=== PATIENT | male | born 1940 | race Caucasian/White ===

== ENCOUNTER → 2017-11-03 | Outpatient (CLI) | payer MEDICARE ==
[~2017-11-03] MED LIST: ATOR20TA42 PO; CARD240C6 PO; CHLO4TAB2 PO; HYDR-3580 OR
--- NOTE | 2017-11-03 09:27 | RADRPT ---
EXAM DATE/TIME: 11/03/2017 08:33 [place] COMPARISON: No previous studies available for comparison. INDICATIONS : Evaluate for pneumonia, pneumothorax, or communicable disease. Pre-op right shoulder acromioplasty. MEDICAL HISTORY : Heart attack. SURGICAL HISTORY : Umbilical hernia repair. Hip replacement. ENCOUNTER: Initial ACUITY: 1 day PAIN SCORE: 0/10 LOCATION: Bilateral chest FINDINGS: PA and lateral views of the chest demonstrate the lungs to be symmetrically aerated without evidence of mass, infiltrate or effusion. The cardiomediastinal contours are unremarkable. Osseous structure s are intact. Cholecystectomy clips. CONCLUSION: Normal examination. Albaro Alan MD on November 03, 2017 at 9:24 Board Certified Radiologist. This report was verified electronically.
--- NOTE | 2017-11-04 23:52 | EKG ---
Date Performed: 11/03/2017 Time Performed: 08:12:16 PTAGE: 77 years EKG: Sinus rhythm with bigeminal PACs. Rightward axis Right bundle branch block Abnormal ECG PREVIOUS TRACING : 05/03/2012 06.38 Compared to previous tracing, previously ectopic rhythm DOCTOR: Ge Sow Interpretating Date/Time 11/04/2017 23:50:16
== END ==
LOC: HCAV 07:58
PROVIDERS: ATTEND Pediatrics
DX: Z01.818 Encounter for other preprocedural examination (principal); R94.31 Abnormal electrocardiogram [ECG] [EKG]
CPT/HCPCS: 71046; 93005

== ENCOUNTER 2017-11-25 06:32 | Day surgery (SDC) | payer MEDICARE ==
[~2017-11-25] VITALS: Ht 172.7 cm; Wt 80.1 kg
[2017-11-25] MEDS ORDERED: IOHEXOL 350 MG/ML 50 ML BTL (for Cath Lab) OTHER ONE ×2 (06:33)
[2017-11-25 06:45] VITALS: BP 176/79; PULSE 60; RESP 17; TEMP 98.1; O2SAT 99
[2017-11-25] MEDS ORDERED: CETI10CH CHEW (07:25)
[2017-11-25] MEDS ORDERED: HYDR25TA5 PO (07:25)
[2017-11-25] MEDS ORDERED: ATOR20TA15 PO (07:25)
[2017-11-25] MEDS ORDERED: METO1TAB9 PO (07:25)
[2017-11-25] MEDS ORDERED: ECASA81 PO (07:25)
[2017-11-25 07:32] LABS: BASOPHIL # 0.1 TH/MM3 (0-0.2); BASOPHIL % 0.9 % (0.0-2.0); EOSINOPHIL # 0.5 TH/MM3 (0-0.4); EOSINOPHIL % 8.8 % (0.0-4.0); HEMATOCRIT 41.7 % (39.0-51.0); HEMOGLOBIN 14.4 GM/DL (13.0-17.0); LYMPH % 32.6 % (9.0-44.0); MEAN CELL VOLUME 96.2 FL (80.0-100.0); MEAN CORPUSCULAR HEMOGLOBIN 33.2 PG (27.0-34.0); MEAN CORPUSCULAR HGB CONC 34.5 % (32.0-36.0); MEAN PLATELET VOLUME 8.6 FL (7.0-11.0); MONO % 7.7 % (0.0-8.0); MONOCYTE # 0.5 TH/MM3 (0-0.9); PLATELET COUNT 225 TH/MM3 (150-450); RED BLOOD COUNT 4.33 MIL/MM3 (4.50-5.90); RED CELL DISTRIBUTION WIDTH 13.5 % (11.6-17.2); WHITE BLOOD COUNT 6.1 TH/MM3 (4.0-11.0)
[2017-11-25 07:44] LABS: PROTHROMBIN TIME - PATIENT 10.2 SEC (9.8-11.6)
[2017-11-25 07:51] LABS: CALCIUM 8.9 MG/DL (8.5-10.1); CREATININE 1.27 MG/DL (0.60-1.30)
[2017-11-25] MEDS ORDERED: HEPARIN-NS/PF INJ 500 ML ONE (08:30)
[2017-11-25] MEDS ORDERED: NITROGLYCERIN INJ 5 ML ONE (08:31)
[2017-11-25] MEDS ORDERED: MIDAZOLAM HCL 2 MG/2 ML VIAL ONE (08:31)
[2017-11-25] MEDS ORDERED: HEPARIN SODIUM - IV 10,000 UNITS/10 ML VIAL ONE (08:31)
[2017-11-25] MEDS ORDERED: VERAPAMIL HCL 5 MG/2 ML VIAL ONE (08:31)
--- NOTE | 2017-11-25 09:20 | CATHPROC ---
[facility] HIS Report Study Information Study Number Admission Scheduled Start Study Start [id number] Nov 25 2017 6:32AM 11/25/2017 Nov 25 2017 8:26AM [place] [facility] Cardiac Catheterization Admit Source Facility Department Other [facility] - Senior C Software Engineer Physician and Clinical Staff Initial Ge Davey Hedge Trimmer Macy Horton,RN Recorder Ashly Hdz ,RT(R) Scrub Ector Rocha RCIS(BS) Procedures Performed Procedure Location (Site) Vessel Name Coronary Angiograms LCA Left Coronary Coronary Angiograms RCA Right Coronary L Heart Cath Equipment Time Housing Assistant Description Size Mfg Part Number Used/Scraped TRANSDUCER, TRUWAVE [id number] 08:32 DIAZ MAST * Used W/STOCKCOCK *[id number] [id number] *[id number] [id number] *[id number] 08:32 Startup [employer] PACK, CCL CUSTOM * Used *[id number] 08:32 [employer] SUPPORT, ARTERIAL ADULT [id number] *[id number] Used BAND, RADIAL COMPRESSION TR [id number] 09:06 THREAT [employer]REAM [employer] 24CM Used SHORT 24 *[id number] 08:32 FAD ? IO WIRE, EXCHANGE 260CM 3MMJ 260CM Used *[id number] 08:32 NAMIC MANIFOLD, 4 PORT * Used *[id number] 08:32 NYCOMED OMNIPAQUE, 350 MG, 150ML 150ML [id number] Used [id number] 08:32 [employer]LEY [employer] BLANKET,WARM AIR CCL * Used *[id number] SHEATH, FR6 TRANSRADIAL RM*[id number] 08:32 [employer] MED[employer] FR 6 Used SLENDER 10CM *[id number] Equipment Model, Serial, Lot Number and Expiration Data Description Model Number Serial Number Lot Number Expiration Date BAND, RADIAL COMPRESSION TR [id number] 09-07-2020 SHORT 24 History: Current Medications Medication Dosage/Unit Route Frequency Last Date/Time Taken ASA Statins (any) History: Allergies Allergy Reaction ciprofloxacin HIVES,RASH cefuroxime ITCHING,HIVES lisinopril cephalexin History: Risk Factors Family History of Hypertension Dyslipidemia Previous AR Previous Heart Failure Premature CAD Yes Yes Yes Yes No Prior Valve Prior PCI Prior CABG Surgery No No No Cerebrovascular Peripheral Artery Chronic Lung On Dialysis Diabetes Disease Disease Disease No No Yes No No History: Stress Tests Stress or Imaging Studies Performed Yes Standard Exercise Stress Test No Stress Echo No Stress Test SPECT Yes Stress Test CMR No Cardiac CTA Coronary Calcium Score No No Labs Hgb (g/dl) Hct (%) RBC (MIL/MM3) WBC (l/cumm) Platelets (thousands) 11.60-17.00 35.00-51.00 4.00-5.90 4.00-11.00 150.00-450.00 14.4 41.7 4.3 6.1 225 BUN (mg/dl) Creatinine (mg/dl) BUN:Creatinine (1:x) 7.00-18.00 0.50-1.30 10.00-20.00 17 1.2 14.2 Na (meq/l) K (meq/l) Cl (meq/l) 136.00-145.00 3.50-5.10 98.00-107.00 138 4.4 102 CPK-MB (ng/ML) 0.50-3.60 Not Drawn Medication Medication Total Dose (Bolus/Oral) Medication Total Dosage/Unit 1% XYLOCAINE 10 mL FENTANYL 25 mcg RADIAL COCKTAIL 5 mL (Bolus) VERSED 0.5 mg Medications (Bolus/Oral) Medication Time Given Dosage/Unit Administered By Reason VERSED 11/25/2017 8:54:30 AM 0.5 mg Macy Horton 0.5 mg VERSED given in lab by Macy Horton, RN in Left Antecubital via Peripheral IV. Ordered by Ge Burroughs 1% XYLOCAINE 11/25/2017 8:55:17 AM 10 mL Ge Sow 10 mL 1% XYLOCAINE given in lab by Ge Sow in Right Radial via Subcutaneous. Ordered by Ge Sanchez FENTANYL 11/25/2017 8:55:34 AM 25 mcg Macy Horton 25 mcg FENTANYL given in lab by Macy Horton, RN in Left Antecubital via Peripheral IV. Ordered by Ge Sow Ntg 200mcg Verapamil 2.5mg Heparin RADIAL COCKTAIL 11/25/2017 8:57:10 AM 5 mL (Bolus) Ge Sow 3000U 5 mL (Bolus) RADIAL COCKTAIL given in lab by Ge Sow via Radial. Using [Solution Name]. O rdered by Ge Sow Reason: Ntg 200mcg Verapamil 2.5mg Heparin 3200U. Medication (Drip) Medication Time Given Dosage/Unit Concentration/Unit Diluent (ml) Solution IV Solutions 11/25/2017 8:27:10 AM 50 mL (IV) NaCl .9 Patient arrived on IV Solutions in Left Antecubital via Peripheral IV. Pump/Drip Flow using NaCl .9. Initial Case Assessment Cardiovascular HR Rhythm NIBP 82 sr 199/88 Edema Present Skin color Skin None Normal Warm Dry Circulatory - Right Pulses Dorsalis Pedis Femoral Radial 2 2 2 Scale (0,1,2,3,4,d) Circulatory - Left Pulses Dorsalis Pedis Femoral Radial 2 2 Scale (0,1,2,3,4,d) Circulatory - Lower Extremities Color Lower Right Color Lower Left Normal Normal Neurological State Oriented to time-place- Alert Moves all extremities person Respiration - General Respiration Rate SpO2 (%) (B/min) 8 98 Final Case Assessment Cardiovascular HR Rhythm NIBP 82 sr 199/88 Edema Present Skin color Skin None Normal Warm Dry Circulatory - Right Pulses Dorsalis Pedis Femoral Radial 2 2 2 Scale (0,1,2,3,4,d) Circulatory - Left Pulses Dorsalis Pedis Femoral Radial 2 2 Scale (0,1,2,3,4,d) Circulatory - Lower Extremities Color Lower Right Color Lower Left Normal Normal Neurological State Oriented to time-place- Alert Moves all extremities person Respiration - General Respiration Rate SpO2 (%) (B/min) 8 98 Chronological Log Time Study Chronological Log 8:24:33 Patient arrived via Bed. 8:24:40 Patient Name, D.O.B, / Armband Verified By R.N. 8:26:44 Consent signed by the physician and the patient and verified by the Senior C Software Engineer staff. 8:26:45 Pre-op and post- op instructions given; patient acknowledges understanding of instructions. 8:26:46 Verbal Stimulation=2 Physical Stimulation=2 Airway=2 Respiration=2 TOTAL=8. (0=absent, 1=li mited, 2=present) 8:26:49 Allens test performed on the right radial and ulnar artery. 8:26:59 Patient has been NPO for More than 6Hrs. 8:27:01 Skin Breakdown- none per patient 8:27:07 Patient Warmer Placed on the Table. 8:27:08 Nayana Prominences Protected 8:27:09 A # 20 IV was noted in the Antecubital (left). Grade = 0 8:27:10 Patient arrived on IV Solutions in Left Antecubital via Peripheral IV. Pump/Drip Flow using NaCl .9. 8:27:10 History and physical on the chart or being dictated. Assessment: Initial Case, HR=82 BPM, Rhythm=sr, NNUB=390/88 mmhg, Edema=None, Color=Normal, Skin = Warm, Dry Right Pulses: Geo Ped=2, Femoral=2, Radial=2 Left Pulses: Geo Ped=2, Femoral=2 8:27:15 Lower Right Extremities: Color=Normal Lower Left Extremities: Color=Normal Neurological: State=Alert, Ox3, RODRIGUEZ Respiration: Resp=8 B/min, SpO2=98 % Vitals capture started with the following parameters, Patient=Adult, Interval=5 min, Initial Pre iglis=860 mmHg, 8:28:59 Deflation Rate=5 mmHg, Cuff placed on Left Arm 8:30:15 ZF=174 bpm, GCGS=106/88 mmhg, SpO2=98.0 %, Resp=4 B/min, Pain=0, Osmani=10, Tirado=2 8:32:34 Reference ECG taken 8:34:44 HR=65 bpm, UCGK=177/99 mmhg, SpO2=99.0 %, Resp=10 B/min, Pain=0, Osmani=10, Tirado=2 8:38:23 Right Radial and groin(s) prepped with 2% chlorhexidine, and draped after a 3 min. waiting t johnathon. 8:39:43 HR=65 bpm, LLKP=915/100 mmhg, SpO2=99.0 %, Resp=12 B/min, Pain=0, Osmani=10, Tirado=2 8:42:11 MD paged 8:42:13 MD responded 8:44:25 MD arrived. 8:44:46 HR=66 bpm, VMVT=021/90 mmhg, SpO2=98.0 %, Resp=11 B/min, Pain=0, Osmani=10, Tirado=2 8:46:08 Pressure channel 1 zeroed. 8:49:39 HR=64 bpm, BWOM=134/94 mmhg, SpO2=97.0 %, Resp=12 B/min, Pain=0, Osmani=10, Tirado=2 Time Out. Correct patient, correct procedure, correct physician, labs, allergies, and equipment verified with photographic laboratory supervisor 8:53:28 team present. Fire risk assesment completed (see hard stop sheet for coding). Time Out Concu rred by MD and individual staff in procedure. 0.5 mg VERSED given in lab by Macy Horton, RN in Left Antecubital via Peripheral IV. Ordered by Ge Sow 8:54:30 G. 8:55:16 Case Start 10 mL 1% XYLOCAINE given in lab by Ge Sow in Right Radial via Subcutaneous. Ordered by Juanjose 8:55:17 Ge De Oliveira 8:55:29 HR=66 bpm, AHNB=483/99 mmhg, SpO2=97.0 %, Resp=16 B/min, Pain=0, Osmani=10, Tirado=2 25 mcg FENTANYL given in lab by Macy Horton, TRIXIE in Left Antecubital via Peripheral IV. Ordere d by Juanjose 8:55:34 Ge De Oliveira 8:56:11 Access site was Right Radial Artery. A SHEATH, FR6 TRANSRADIAL SLENDER 10CM FR 6 was advanced into the Radial (right) using the Keisha bowles 8:56:44 technique. 5 mL (Bolus) RADIAL COCKTAIL given in lab by Ge Sow via Radial. Using [Solution Nam e]. Ordered by 8:57:10 Ge Sow. Reason: Ntg 200mcg Verapamil 2.5mg Heparin 3200U. A JR 4.0 INFINITI CATHETER FR 5 was advanced over a wire. OMNIPAQUE, 350 MG, 150ML 150ML was use d for 8:57:44 injections. Recorded Pressure: LV, HR=82, Condition=Condition 1 8:58:42 (Left Ventricle) LV 152/1/16 Recorded Pressure: LV, Ao, HR=83, Condition=Condition 1 8:58:58 (Left Ventricle) LV 146/6/41, (Aorta) Ao 155/78/115 8:59:45 HR=76 bpm, QSDY=146/85 mmhg, SpO2=92.0 %, Resp=7 B/min, Pain=0, Osmani=10, Tirado=2 9:00:31 The RCA was injected and visualized at various angles. OMNIPAQUE, 350 MG, 150ML 150ML used. After removing the current catheter a JL 3.5 INFINITI CATHETER FR 5 was advanced over a WIRE, EX CHANGE 260CM 9:02:26 3MMJ 260CM. 9:03:37 The LCA was injected and visualized at various angles. OMNIPAQUE, 350 MG, 150ML 150ML used. 9:04:38 HR=77 bpm, BMPN=637/74 mmhg, SpO2=91.0 %, Resp=10 B/min, Pain=0, Osmani=10, Tirado=2 9:06:01 Catheter was removed 9:06:26 Case End Assessment: Final Case, HR=82 BPM, Rhythm=sr, DWNG=738/88 mmhg, Edema=None, Color=Normal, Skin = Warm, Dry Right Pulses: Geo Ped=2, Femoral=2, Radial=2 Left Pulses: Geo Ped=2, Femoral=2 9:06:53 Lower Right Extremities: Color=Normal Lower Left Extremities: Color=Normal Neurological: State=Alert, Ox3, RODRIGUEZ Respiration: Resp=8 B/min, SpO2=98 % 9:06:59 Catheter(s) removed without difficulty Radial Compression Device Used. 12 mLs of air placed in BAND, RADIAL COMPRESSION TR SHORT 24 2 4CM. Affected 9:07:01 hand ~O2 SATURATION~ % O2 saturation. 9:07:10 Sterile dressing applied to site 9:07:11 No case complications noted. 9:07:13 Cine recording checked. 9:07:14 Bedside Report will be given. 9:07:20 A Left Heart Cath was performed. 9:09:41 HR=60 bpm, SWJK=419/81 mmhg, SpO2=94.0 %, Resp=10 B/min, Pain=0, Osmani=10, Tirado=2 9:16:32 Patient moved to stretcher End Study - Contrast Media Used In Study Contrast Total Opened (mL) Total Used (mL) Total Wasted (mL) Omnipaque 40 40 0 End Study - Maximum Contrast Load Max Contrast Load (mL) 333.3 End Study - Radiation Exposure Fluoro Time (minutes) 2.7 End Study - Sheaths Sheaths Pulled By Sheath Hold Time (min) Ector Rocha End Study - Patient Disposition Complications Transferred To Interventional Outcome No Telemetry Bed No attempt made
[2017-11-25] MEDS ORDERED: hydrALAZINE HCL 20 MG/ML VIAL ONE (09:29)
[2017-11-25] MEDS ORDERED: MISC INFORMATION XX ONE (09:30)
--- NOTE | 2017-11-25 10:01 | MA ---
cc: Ge Sow DO DATE: 11/25/2017 DATE OF PROCEDURE: 11/25/2017 PROCEDURE PERFORMED: Left heart catheterization, coronary angiogram, moderate sedation 10 minutes. PREPROCEDURE DIAGNOSIS: Preoperative cardiovascular evaluation, abnormal stress test. POSTPROCEDURE DIAGNOSIS: Mild coronary artery disease. MEDICATIONS: Versed 0.5 mg, fentanyl 25 mcg, heparin 3200 units, verapamil 2.5 mg and nitro 200 mcg. CONTRAST USED: 40 mL. FLUOROSCOPY: 2.7 minutes. MODERATE SEDATION: 10 minutes. FRAILTY SCORE: 4. ESTIMATED BLOOD LOSS: 10 mL. PROCEDURAL SUMMARY: Moisés Cifuentes is a pleasant 77-year-old male who sees my partner, Dr. Page in the office and underwent stress testing in anticipation of shoulder surgery. He was found to have mild abnormality in the anterolateral portion and recommended cardiac catheterization. Risks, benefits and alternatives were explained to him and he consented to such. He was brought to the lab and prepped in the usual sterile fashion. The right radial artery was accessed using a modified Seldinger technique and placement of a 5/6 Mongolian slender sheath. This was easily aspirated and flushed. A JR4 was advanced over a J-wire to the ascending aorta and across the aortic valve for measurement of left ventricular pressure. This was pulled back across the aortic valve showing no significant gradient of aortic stenosis. JR4 was used for selective angiography of the right coronary artery system. This was exchanged out for a JL3.5 which was used for selective angiography of the left coronary artery system. JL3.5 was removed over a J-wire. A radial band was placed over the arteriotomy site for hemostasis. The patient left the medical laboratory technical officer cardiovascularly stable. FINDINGS: LEFT MAIN: Normal-sized vessel with adequate reflux and no significant disease. It bifurcates into an LAD and circumflex. LAD: Normal-sized vessel in the proximal portion with just distal to this 10-20% disease. Distally it has no significant disease. It gives off 1 major diagonal, which has a 30% lesion in the ostial portion and distal to this 10-20% disease. LEFT CIRCUMFLEX: Normal-sized vessel with mild luminal irregularities throughout the proximal and mid portion. It gives off 2 obtuse marginals with the first one being large and no significant disease and the second one being overall small. RCA: Normal-sized vessel with no disease noted. It gives off a PDA as well as a posterolateral branch. LVEDP: 12. IMPRESSION: 1. Abnormal stress test. 2. Mild coronary artery disease by cardiac catheterization. 3. Preoperative cardiovascular exam. RECOMMENDATIONS: 1. Mr. Cifuentes appears to have mild coronary artery disease and he will continue on medical management. 2. He will followup with Dr. Page for further recommendations for his preoperative risk assessment. Thank you for allowing me to see Moisés Cifuentes. If there are any questions, please do not hesitate to call. Ge Sow, VGP/KD , 09:19 AM , 10:00 AM
--- NOTE | 2017-11-26 14:22 | EKG ---
Date Performed: 11/25/2017 Time Performed: 07:38:00 PTAGE: 77 years EKG: Possible ectopic atrial bradycardia. Right bundle branch block Abnormal ECG PREVIOUS TRACING : 11/03/2017 08.12 Since the previous tracing, no significant change noted DOCTOR: Kelvin Benz Interpretating Date/Time 11/26/2017 14:19:27
== END 2017-11-25 13:01 | disposition home or self-care (01) ==
LOC: HDOC 06:32 → HDIC 06:33 → HDOC 13:01
PROVIDERS: ATTEND Nuclear Medicine Nuclear Cardiology
DX: I25.10 Atherosclerotic heart disease of native coronary artery without angina pectoris (principal); I11.0 Hypertensive heart disease with heart failure; I73.9 Peripheral vascular disease, unspecified; I65.22 Occlusion and stenosis of left carotid artery; F10.10 Alcohol abuse, uncomplicated; Z79.82 Long term (current) use of aspirin
CPT/HCPCS: 80048; 85025; 85610; 85730; 93005; 93458; C1769; C1893; J0360; J1644; J2250; J3010; Q9967